=== PATIENT | male | born 1980 | race Caucasian/White ===

== ENCOUNTER 2022-10-18 21:06 | Emergency (ER) | payer OTHER ==
[2022-10-18 21:19] VITALS: BP 128/81; PULSE 82; RESP 19; TEMP 98.6; BMI 17.7
[2022-10-18] MEDS ORDERED: SODIUM CHLORIDE 0.9% 500 ML INFUS.BAG IV ONE ×2 (21:56→23:27)
[2022-10-18] MEDS ORDERED: FAMOTIDINE 20 MG/50 ML IVPB 20 MG/50 ML MG IVPB ONE ×2 (21:57→22:40)
[2022-10-18] MEDS ORDERED: PANTOPRAZOLE SODIUM 40 MG VIAL IVPUSH ONE (21:57)
[2022-10-18] MEDS ORDERED: ONDANSETRON 4 MG/2 ML VIAL IVPUSH ONE (21:57)
[2022-10-18] MEDS ORDERED: ONDANSETRON 4 MG/2 ML VIAL ONE (22:40)
[2022-10-18 23:04] LABS: BASO % 0.2 % (0-2.0); HEMATOCRIT 51.9 % (35.4-49); HEMOGLOBIN 17.7 GM/dL (11.7-16.9); MCH 28.9 pg (25.7-33.7); MCHC 34.2 g/dl (32.0-35.9); MEAN CELL VOLUME 84.4 fl (80-96); MONO % 6.6 % (3.8-10.2); NEUT % 85.2 % (42.8-82.8); PLATELET COUNT 177 10^3/uL (134-434); RBC 6.15 M/mm3 (4.00-5.60); WHITE BLOOD COUNT 23.1 K/mm3 (4.0-10.0)
[2022-10-18 23:06] LABS: VENOUS BASE EXCESS 5.4 mmol/L (-2-2); VENOUS O2 SATURATION 93.9 % (70-80); VENOUS PCO2 35.7 mmHg (38-52); VENOUS PH 7.515 (7.310-7.410)
[2022-10-18 23:25] LABS: CALCIUM 9.5 mg/dL (8.5-10.1)
[2022-10-18 23:26] LABS: ALBUMIN 3.9 g/dl (3.4-5.0)
[2022-10-18 23:28] LABS: CREATININE 0.9 mg/dL (0.55-1.3)
[2022-10-18 23:30] LABS: BILIRUBIN,TOTAL 1.2 mg/dL (0.2-1)
[2022-10-18 23:31] LABS: ANISOCYTOSIS 1+; MACROCYTOSIS 1+; TEAR DROP CELLS 1+
[2022-10-19] MEDS ORDERED: METOCLOPRAMIDE HCL INJECTION 10 MG/2 ML VIAL IVPB ONE (00:12)
[2022-10-19] MEDS ORDERED: METOCLOPRAMIDE HCL INJECTION 10 MG/2 ML VIAL ONE (00:12)
== END 2022-10-19 01:40 | disposition left against medical advice (07) ==
LOC: JER 21:06
PROC: 3E033GC Introduction of Other Therapeutic Substance into Peripheral Vein, Percutaneous Approach (ICD-10-PCS; principal; 2022-10-18)
PROC: 3E033GC Introduction of Other Therapeutic Substance into Peripheral Vein, Percutaneous Approach (ICD-10-PCS; 2022-10-18)
PROC: 3E033GC Introduction of Other Therapeutic Substance into Peripheral Vein, Percutaneous Approach (ICD-10-PCS; 2022-10-19)
DX: R11.2 Nausea with vomiting, unspecified (principal); R10.13 Epigastric pain; R07.89 Other chest pain; R19.7 Diarrhea, unspecified
CPT/HCPCS: 36415; 71260-TC; 74177-TC; 80053; 82010; 82803; 83690; 84484; 85025; 93005; 93010; 99285-25